=== PATIENT | female | born 1935 | race Caucasian/White ===

== ENCOUNTER 2016-12-06 14:27 | Emergency (ER) | payer MEDICARE, MEDICAID ==
[~2016-12-06] VITALS: Ht 157.5 cm; Wt 81.6 kg
[2016-12-06 14:56] VITALS: BP 155/84
[2016-12-06 15:05] LABS: BASOPHILS % (AUTO) 1.1 % (0.0-2.0); EOSINOPHILS % (AUTO) 4.1 % (0.0-3.0); LYMPHOCYTES % (AUTO) 28.8 % (20.0-45.0); MEAN CORPUSCULAR HEMOGLOBIN 25.4 PG (27.0-31.0); MEAN CORPUSCULAR HGB CONC 31.4 G/DL (32.0-36.0); MEAN CORPUSCULAR VOLUME 81 FL (80-99); MONOCYTES % (AUTO) 9.2 % (1.0-10.0); NEUTROPHILS % (AUTO) 56.8 % (45.0-75.0); PLATELET COUNT 211 K/UL (150-450); RED BLOOD COUNT 5.15 M/UL (4.20-5.40); WHITE BLOOD COUNT 6.5 K/UL (4.8-10.8)
[2016-12-06 15:21] LABS: TROPONIN I < 0.30 ng/mL (<=0.30)
--- NOTE | 2016-12-06 15:27 | Diagnostic Imaging Report ---
Indications: Left arm numbness, left side of the face tingling, posterior Technique: Spiral acquisitions obtained through the brain. Angled axial and coronal 5 x 5 mm slices were reconstructed. Total dose length product 1560 mGycm. CTDI vol(s) 70 mGy. Dose reduction achieved using automated exposure control Comparison: None Findings: There is age-related enlargement of the ventricles and extra-axial CSF. No acute hemorrhage or edema. No mass effect nor midline shift. Normal saenz-white differentiation. Intact calvarium. There is minimal sphenoid sinus disease on the left. There is evidence of prior bilateral cataract surgery. Impression: Mild age-related changes. Negative for acute intracranial bleed or mass effect. Minimal sinus disease Stat code stroke findings phoned to Raquel in the emergency room at the time of interpretation The CT scanner at [facility] is accredited by the [employer] and the scans are performed using protocols designed to limit radiation exposure to as low as reasonably achievable to attain images of sufficient resolution adequate for diagnostic evaluation.
[2016-12-06 15:28] LABS: ALANINE AMINOTRANSFERASE 14 U/L (3-33); ALBUMIN/GLOBULIN RATIO 1.7 (1.0-2.7); ANION GAP 16 (5-15); ASPARTATE AMINO TRANSFERASE 21 U/L (5-40); CALCIUM 9.1 mg/dL (8.6-10.2); CARBON DIOXIDE 25 mEQ/L (20-30); CHLORIDE 99 mEQ/L (98-107); CHOLESTEROL 180 mg/dL (< 200); CHOLESTEROL/HDL RATIO 3.1 (3.3-4.4); CREATININE 0.7 mg/dL (0.5-0.9); HEMOLYSIS 11; LDL CHOLESTEROL (CALC.) 93 mg/dL (60-99); POTASSIUM 4.1 mEQ/L (3.4-4.9); SODIUM 140 mEQ/L (135-145); TOTAL PROTEIN 6.4 g/dL (6.6-8.7)
[2016-12-06] MEDS ORDERED: DIOVAN HCT 80MG1 TAB ORAL (15:50)
[2016-12-06] MEDS ORDERED: ATENOLOL25 MG ORAL (15:50)
[2016-12-06] MEDS ORDERED: VITAMIN B COMP1 EAC2 ORAL (15:50)
[2016-12-06] MEDS ORDERED: LUNESTA2 MG ORAL (15:50)
[2016-12-06] MEDS ORDERED: MECLIZINE HCL25 MG ORAL (15:50)
[2016-12-06] MEDS ORDERED: ADVAIR 250-501 EACH INH (15:50)
[2016-12-06 16:40] VITALS: BP 154/60
--- NOTE | 2016-12-06 16:43 | Diagnostic Imaging Report ---
Indication: Chest pain Technique: One view of the chest Comparison: 72,012 Findings: Suboptimal inspiration. Heart size difficult to assess, probably upper limits of normal. Tortuous calcified aorta. No definite acute infiltrates, effusions, or congestion. No definite significant interim change Impression: Hypoventilatory exam. No definite acute process
--- NOTE | 2016-12-06 18:56 | Emergency Room Report ---
History of Present Illness General Chief Complaint: General Complaint Source: Patient Present Illness HPI 81-year-old female presents to ED complaining of numbness and tingling to the face and arm. Patient states that since 2 hours ago she is noticed tingling sensation in the face and tingling sensation in the left arms. Denies any slurred speech or facial droop. Denies any arm or leg weakness. Patient states she otherwise feels well. Denies any chest pain shortness of breath. No other aggravating relieving factors. Denies any other associated symptoms Allergies: Coded Allergies: DULOXETINE (Verified Allergy, Unknown, 12/06/16) PANTOPRAZOLE (Verified Allergy, Unknown, 12/06/16) PENICILLINS (Verified Allergy, Unknown, 12/06/16) Uncoded Allergies: DEPOMEDROL (Allergy, Unknown, 12/06/16) DILANDED (Allergy, Unknown, 12/06/16) Patient History Past Medical History: HTN, asthma, psych hx Past Surgical History: none Pertinent Family History: none Social History: Denies: alcohol use, drug use, smoking Last Menstrual Period: na Now: No Immunizations: UTD Reviewed Nursing Documentation: PMH: Agreed, PSxH: Agreed Nursing Documentation-PMH Past Medical History: No History, Except For Hx Hypertension: Yes Hx Asthma: Yes History Of Psychiatric Problem: Yes - anxiety, insomnia Hx Neurological Problems: Yes - vertigo Review of Systems All Other Systems: negative except mentioned in HPI Physical Exam Vital Signs Date Time Temp Pulse Resp B/P Pulse Ox O2 Delivery O2 Flow Rate FiO2 12/06/16 14:17 99.0 82 18 169/88 98 Room Air Sp02 EP Interpretation: reviewed, normal General Appearance: no apparent distress, alert, GCS 15, non-toxic Head: normocephalic, atraumatic Eyes: bilateral eye PERRL, bilateral eye normal inspection ENT: hearing grossly normal, normal pharynx, no angioedema, normal voice Neck: full range of motion, supple/symm/no masses Respiratory: chest non-tender, lungs clear, normal breath sounds, speaking full sentences Cardiovascular #1: regular rate, rhythm, no edema Cardiovascular #2: 2+ carotid (R), 2+ carotid (L), 2+ radial (R), 2+ radial (L) , 2+ dorsalis pedis (R), 2+ dorsalis pedis (L) Gastrointestinal: normal bowel sounds, non tender, soft, non-distended, no guarding, no rebound Rectal: deferred Genitourinary: normal inspection, no CVA tenderness Musculoskeletal: back normal, gait/station normal, normal range of motion, non- tender Neurologic: alert, oriented x3, responsive, [employer] III-XII nml as tested, motor strength/tone normal, sensory intact, cerebellar normal, normal gait, speech normal Psychiatric: judgement/insight normal, memory normal, mood/affect normal, no suicidal/homicidal ideation Reflexes: 3+ bicep (R), 3+ bicep (L), 3+ tricep (R), 3+ tricep (L), 3+ knee (R) , 3+ knee (L) Skin: normal color, no rash, warm/dry, well hydrated Lymphatic: no adenopathy Medical Decision Making Diagnostic Impression: Primary Impression: Numbness and tingling in left arm ER Course Hospital Course 81-year-old F presents ED complaining of tingling sensations in face and L arm Differential diagnoses include: MA/unstable angina, SVT/Vtach/AFib, CVA/TIA Clinical course Patient placed on stretcher. on surveillance monitor. After initial history and physical I ordered labs, EKG, chest x-ray, and CT head labs reviewed- electrolytes ok, troponins negative, no leukocytosis, Hb/Hct stable EKG - NSR, no acute changes interpreted by me Chest x-ray- no acute process CT brain - no acute process noted Discussed findings the patient. Patient had no focal deficits. 5 out of 5 strength. Cranial nerves II through XII intact. I do not believe patient is suffering from a stroke. Patient denies any tingling sensations at this time. I gave patient option for admission however she would prefer to be discharged at this time with outpatient followup I. I feel this is a highly complex case requiring extensive working including EKG/Rhythm strip, Xray/CT/US, Blood/urine lab work, repeat exams while in ED, and administration of strong opiates/narcotics for pain control, admission to hospital or close patient follow up. Diagnosis - numbness/tingling in L arm Stable and discharged to home. Followup with PMD. Return to ED if symptoms recur or worsen Labs Test 12/06/16 14:50 White Blood Count 6.5 K/UL (4.8-10.8) Red Blood Count 5.15 M/UL (4.20-5.40) Hemoglobin 13.1 G/DL (12.0-16.0) Hematocrit 41.5 % (37.0-47.0) Mean Corpuscular Volume 81 FL (80-99) Mean Corpuscular Hemoglobin 25.4 PG (27.0-31.0) Mean Corpuscular Hemoglobin Concent 31.4 G/DL (32.0-36.0) Red Cell Distribution Width 14.0 % (11.6-14.8) Platelet Count 211 K/UL (150-450) Mean Platelet Volume 7.0 FL (6.5-10.1) Neutrophils (%) (Auto) 56.8 % (45.0-75.0) Lymphocytes (%) (Auto) 28.8 % (20.0-45.0) Monocytes (%) (Auto) 9.2 % (1.0-10.0) Eosinophils (%) (Auto) 4.1 % (0.0-3.0) Basophils (%) (Auto) 1.1 % (0.0-2.0) Prothrombin Time 10.0 SEC (9.30-11.50) Prothromb Time International Ratio 1.0 (0.9-1.1) Activated Partial Thromboplast Time 28 SEC (23-33) Sodium Level 140 mEQ/L (135-145) Potassium Level 4.1 mEQ/L (3.4-4.9) Chloride Level 99 mEQ/L (98-107) Carbon Dioxide Level 25 mEQ/L (20-30) Anion Gap 16 (5-15) Blood Urea Nitrogen 12 mg/dL (7-23) Creatinine 0.7 mg/dL (0.5-0.9) Estimat Glomerular Filtration Rate mL/min (>60) Glucose Level 111 mg/dL (74-106) Calcium Level 9.1 mg/dL (8.6-10.2) Total Bilirubin 0.2 mg/dL (0.0-1.2) Aspartate Amino Transf (AST/SGOT) 21 U/L (5-40) Alanine Aminotransferase (ALT/SGPT) 14 U/L (3-33) Alkaline Phosphatase 79 U/L (35-104) Troponin I < 0.30 ng/mL (<=0.30) Total Protein 6.4 g/dL (6.6-8.7) Albumin 4.1 g/dL (3.5-5.2) Globulin 2.3 g/dL Albumin/Globulin Ratio 1.7 (1.0-2.7) Triglycerides Level 144 mg/dL (< 150) Cholesterol Level 180 mg/dL (< 200) LDL Cholesterol 93 mg/dL (60-99) HDL Cholesterol 58 mg/dL (> 60) Cholesterol/HDL Ratio 3.1 (3.3-4.4) EKG Diagnostic Results Rate: normal Rhythm: NSR ST Segments: no acute changes ASA given to the pt in ED: No Rhythm Strip Diag. Results EP Interpretation: yes Rhythm: NSR, no PVC's, no ectopy Chest X-Ray Diagnostic Results Chest X-Ray Ordered: Yes # of Views/Limited/Complete: 1 View Interpretation: no consolidation, no effusion, no pneumothorax, no acute cardiopulmonary disease Indication: Other - weakness Impression: No acute disease Date Electronically Signed: Dec 06, 2016 Time Electronically Signed: 18:54 Interpreting ER Physician: Nael Taylor CT/MRI/US Diagnostic Results CT/MRI/US Diagnostic Results : Imaging Test Ordered: CT Head Impression no acute process Last Vital Signs Date Time Temp Pulse Resp B/P Pulse Ox O2 Delivery O2 Flow Rate FiO2 12/06/16 16:40 69 16 154/60 96 Room Air 12/06/16 14:17 99.0 Status: improved Disposition: HOME, SELF-CARE Condition: Stable Patient Instructions: Dizziness, [id number] NAEL TAYLOR M.D. Dec 06, 2016 18:56
== END 2016-12-06 16:45 | disposition home or self-care (01) ==
LOC: EDBD 14:27 → EMR 15:45
DX: R20.0 Anesthesia of skin (principal); Z88.0 Allergy status to penicillin; Z88.8 Allergy status to other drugs, medicaments and biological substances; I10 Essential (primary) hypertension; Z86.59 Personal history of other mental and behavioral disorders; R53.1 Weakness
CPT/HCPCS: 36415; 70450; 71010; 80053; 80061; 82962; 84484; 85025; 85610; 85730; 93005; 99284